=== PATIENT | female | born 1955 | race Caucasian/White ===

== ENCOUNTER → 2016-11-15 | Outpatient (CLI) | payer BC, OTHER ==
[~2016-11-15] VITALS: Ht 160 cm; Wt 70.3 kg
[~2016-11-15] MED LIST: BIOTIN1 M1 PO; CENTRUM SILVER1 EAC5 PO; VIACTIV SOFT C1 EACH PO
--- NOTE | ~2016-11-15 | S ---
[facility] [address] [place] [address] SURGICAL PATH RPT PROCEDURE Name: TYREL CONTE Room #: REG CURTIS Dumont#: [id number] Admission: 11/15/16 Date of : 53 Discharge: Report #: [id number] Path Case #: [id number] PATHOLOGY REPORT DRAFT COLLECTION DATE: 11/15/2016 RECEIVED DATE: 11/15/2016 SPECIMEN(S) RECEIVED: Connie mata
[2016-11-15 07:50] VITALS: BP 168/98
[2016-11-15 08:03] LABS: HEMATOCRIT 34.7 % (37.0-47.0); HEMOGLOBIN 11.8 gm/dL (12.0-15.0); MCH 29.7 pg (26.0-34.0); MCHC 33.9 g/dL (28.0-37.0); MCV 87.7 fL (80.0-100.0); RBC 3.96 mil/uL (4.20-5.00); RDW 13.5 % (10.5-14.5); WBC 8.4 thou/uL (4.0-11.0)
[2016-11-15 08:21] LABS: APTT 28.4 Seconds (24.5-32.8); PROTIME 10.3 Seconds (9.3-11.4)
[2016-11-15 11:50] VITALS: BP 130/68
[2016-11-15 12:05] VITALS: BP 136/68
[2016-11-15 12:20] VITALS: BP 140/68
[2016-11-15 12:36] VITALS: BP 136/70
[2016-11-15 13:08] VITALS: BP 136/68
== END ==
LOC: ULTRA 07:22
PROVIDERS: Family Medicine
DX: K76.89 Other specified diseases of liver (principal)

== ENCOUNTER → 2017-08-28 | Outpatient (CLI) | payer BC, OTHER ==
[~2017-08-28] MED LIST changes: +ABRAXANE100 MG/20 IV; +ACETAMINOPHEN325 MG PO; +EFFER K PO; +GEMZAR1 GM IV; +IBUPROFEN 200200 M1 PO; +LOPERAMIDE 2 MG2 M1 PO; +LORAZEPAM 0.50.5 M1 PO; +ONDANSETRON HCL8 MG PO; +PERCOCET PO
== END | disposition home or self-care (01) ==
LOC: ULTRA 11:59
DX: C25.9 Malignant neoplasm of pancreas, unspecified (principal); R18.8 Other ascites

== ENCOUNTER → 2017-09-11 | Outpatient (CLI) | payer BC, OTHER | LOC: ULTRA 10:02 → EDSTATUS 10:31 → ULTRA 10:36 | DX: R18.8 Other ascites (principal); Z79.891 Long term (current) use of opiate analgesic; Z79.899 Other long term (current) drug therapy ==

== ENCOUNTER → 2017-09-25 | Outpatient (CLI) | payer BC, OTHER | END | disposition home or self-care (01) | LOC: ULTRA 08:14 | DX: R18.8 Other ascites (principal); F41.8 Other specified anxiety disorders; Z79.899 Other long term (current) drug therapy; Z87.891 Personal history of nicotine dependence ==

== ENCOUNTER → 2017-10-07 | Outpatient (CLI) | payer BC, OTHER | END | disposition home or self-care (01) | LOC: ULTRA 09:23 | DX: R18.0 Malignant ascites (principal); C25.9 Malignant neoplasm of pancreas, unspecified; Z79.891 Long term (current) use of opiate analgesic ==

== ENCOUNTER → 2017-10-16 | Outpatient (CLI) | payer BC, OTHER | END | disposition home or self-care (01) | LOC: ULTRA 09:21 | DX: R18.0 Malignant ascites (principal) ==

== ENCOUNTER → 2017-10-25 | Outpatient (CLI) | payer BC, OTHER | LOC: ULTRA 10:46 | DX: R18.8 Other ascites (principal); R14.0 Abdominal distension (gaseous) ==

== ENCOUNTER → 2017-11-04 | Outpatient (CLI) | payer BC, OTHER | END | disposition home or self-care (01) | LOC: RAD 13:16 | DX: R18.8 Other ascites (principal); Z79.891 Long term (current) use of opiate analgesic; Z79.899 Other long term (current) drug therapy ==

== ENCOUNTER → 2017-11-13 | Outpatient (CLI) | payer BC, OTHER | END | disposition home or self-care (01) | LOC: ULTRA 11-04 11:36 | DX: R18.8 Other ascites (principal); C25.9 Malignant neoplasm of pancreas, unspecified; Z79.891 Long term (current) use of opiate analgesic; Z98.890 Other specified postprocedural states ==

== ENCOUNTER → 2017-11-20 | Outpatient (CLI) | payer BC | END | disposition home or self-care (01) | LOC: CAT → ULTRA 12:46 | DX: R18.8 Other ascites (principal) ==